=== PATIENT | female | born 1935 | race Two or more races ===

== ENCOUNTER 2018-08-25 15:47 | Inpatient (IN) | payer MEDICARE, MEDICAID ==
[~2018-08-25] VITALS: Ht 157.5 cm; Wt 93.9 kg
[2018-08-25] MEDS ORDERED: ENALAPRIL 2.5MG/2ML VIAL 2ML IV ONE (19:30)
[2018-08-25 20:31] LABS: BASOPHILS % 0.8 % (0.0-2.0); EOSINOPHILS % 3.1 % (0.0-5.0); HEMATOCRIT. 41.8 % (36.0-48.0); HEMOGLOBIN. 13.7 g/dL (12.0-16.0); LYMPHOCYTES % 26.6 % (20.0-50.0); MEAN CORPUSCULAR HEMOGLOBIN 29.6 pg (28.0-32.0); MEAN CORPUSCULAR VOLUME 90.3 fL (81.0-99.0); MEAN PLATELET VOLUME 8.8 fl (7.4-10.4); MONOCYTES % 6.4 % (2.0-8.0); NEUTROPHILS % 63.1 % (40.0-76.0); PLATELET 294 x1000/uL (130-400); RED BLOOD CELL COUNT 4.63 mill/uL (4.2-5.4)
[2018-08-25 20:39] LABS: PARTIAL THROMBOPLASTIN TIME 38.7 sec (23.4-31.0); PROTHROMBIN TIME 10.1 sec (9.1-11.1)
[2018-08-25 20:43] LABS: CHLORIDE 107 mEq/L (98-107)
[2018-08-26] MEDS ORDERED: ACETAMINOPHEN 325MG TABLET PO PRN (07:30)
[2018-08-26 08:27] LABS: BASOPHILS % 1.2 % (0.0-2.0); EOSINOPHILS % 3.2 % (0.0-5.0); HEMATOCRIT. 33.5 % (36.0-48.0); HEMOGLOBIN. 11.2 g/dL (12.0-16.0); LYMPHOCYTES % 27.6 % (20.0-50.0); MEAN CORPUSCULAR VOLUME 90.2 fL (81.0-99.0); MEAN PLATELET VOLUME 8.4 fl (7.4-10.4); MONOCYTES % 9.5 % (2.0-8.0); NEUTROPHILS % 58.5 % (40.0-76.0); PLATELET 249 x1000/uL (130-400); RED BLOOD CELL COUNT 3.71 mill/uL (4.2-5.4); RED CELL DISTRIBUTION WIDTH 13.9 % (11.6-14.6)
[2018-08-26 08:34] LABS: CHLORIDE 109 mEq/L (98-107)
[2018-08-26 08:41] LABS: LDL CHOLESTEROL 184 mg/dL (5-100)
[2018-08-26 08:42] LABS: HDL CHOLESTEROL 43 mg/dL (40-59)
[2018-08-26] MEDS ORDERED: ENOXAPARIN 40MG/0.4ML SYR SUBCUT SCH (09:00)
[2018-08-26 09:24] VITALS: BP 163/53
[2018-08-26] MEDS ORDERED: LOSARTAN POTASSIUM 25 MG TABLET PO SCH (10:00)
[2018-08-26] MEDS: FUROSEMIDE 20MG/2ML VIAL IVP SCH (10:27)
[2018-08-26] MEDS: LORATADINE 10MG TABLET PO SCH (10:28)
[2018-08-26] MEDS: AMLODIPINE 5MG TABLET PO SCH ×2 (10:28→21:44)
[2018-08-26] MEDS: OXYMETAZOLINE HCL NASAL SPRAY 15ML BOTHNSTRLS SCH ×2 (11:22→21:44)
[2018-08-26 12:00] VITALS: BP 154/31
[2018-08-26 15:53] LABS: CREATINE KINASE MB FRACTION < 1.0 ng/mL (0.5-3.6)
[2018-08-26 16:00] VITALS: BP 126/33
[2018-08-26 20:00] VITALS: BP 113/38
[2018-08-26] MEDS ORDERED: ENOXAPARIN 30MG/0.3ML SYR SUBCUT SCH (21:00)
[2018-08-27] VITALS: BP 109/40
[2018-08-27 00:22] LABS: CREATINE KINASE MB FRACTION < 1.0 ng/mL (0.5-3.6)
[2018-08-27 04:00] VITALS: BP 126/40
[2018-08-27 06:47] LABS: BASOPHILS % 0.9 % (0.0-2.0); EOSINOPHILS % 3.6 % (0.0-5.0); HEMOGLOBIN. 10.8 g/dL (12.0-16.0); LYMPHOCYTES % 33.4 % (20.0-50.0); MEAN CORPUSCULAR HEMOGLOBIN 30.2 pg (28.0-32.0); MEAN CORPUSCULAR VOLUME 89.5 fL (81.0-99.0); MEAN PLATELET VOLUME 8.9 fl (7.4-10.4); MONOCYTES % 8.2 % (2.0-8.0); NEUTROPHILS % 53.9 % (40.0-76.0); PLATELET 258 x1000/uL (130-400); RED BLOOD CELL COUNT 3.58 mill/uL (4.2-5.4)
[2018-08-27 06:52] LABS: CHLORIDE 107 mEq/L (98-107)
[2018-08-27 07:11] LABS: CREATINE KINASE MB FRACTION < 1.0 ng/mL (0.5-3.6)
[2018-08-27 08:00] VITALS: BP 138/39
[2018-08-27] MEDS: OXYMETAZOLINE HCL NASAL SPRAY 15ML BOTHNSTRLS SCH ×2 (08:58→21:06)
[2018-08-27] MEDS: AMLODIPINE 5MG TABLET PO SCH ×2 (08:59→21:05)
[2018-08-27] MEDS: LORATADINE 10MG TABLET PO SCH (08:59)
[2018-08-27] MEDS: LOSARTAN POTASSIUM 25 MG TABLET PO SCH (08:59)
[2018-08-27] MEDS: FUROSEMIDE 20MG/2ML VIAL IVP SCH (08:59)
[2018-08-27 12:00] VITALS: BP 106/41
[2018-08-27 16:00] VITALS: BP 116/41
[2018-08-27 20:00] VITALS: BP 122/53
[2018-08-28] VITALS: BP 136/42
[2018-08-28 04:00] VITALS: BP 126/75
[2018-08-28 07:02] LABS: BASOPHILS % 1.1 % (0.0-2.0); EOSINOPHILS % 4.1 % (0.0-5.0); HEMOGLOBIN. 11.7 g/dL (12.0-16.0); LYMPHOCYTES % 33.2 % (20.0-50.0); MEAN CORPUSCULAR HEMOGLOBIN 29.7 pg (28.0-32.0); MEAN CORPUSCULAR VOLUME 91.2 fL (81.0-99.0); MEAN PLATELET VOLUME 9.1 fl (7.4-10.4); MONOCYTES % 7.1 % (2.0-8.0); NEUTROPHILS % 54.5 % (40.0-76.0); PLATELET 267 x1000/uL (130-400); RED BLOOD CELL COUNT 3.95 mill/uL (4.2-5.4); RED CELL DISTRIBUTION WIDTH 13.9 % (11.6-14.6)
[2018-08-28 08:00] VITALS: BP 158/53
[2018-08-28] MEDS: LOSARTAN POTASSIUM 25 MG TABLET PO SCH (09:09)
[2018-08-28] MEDS: LORATADINE 10MG TABLET PO SCH (09:09)
[2018-08-28] MEDS: FUROSEMIDE 20MG/2ML VIAL IVP SCH (09:09)
[2018-08-28] MEDS: AMLODIPINE 5MG TABLET PO SCH (09:09)
[2018-08-28] MEDS: OXYMETAZOLINE HCL NASAL SPRAY 15ML BOTHNSTRLS SCH (09:15)
[2018-08-28 12:34] VITALS: BP 158/53
[2018-08-28] MEDS ORDERED: ATORVASTATIN CALCIUM 10MG TABLET PO SCH (21:00)
== END 2018-08-28 14:40 | disposition home health service (06) | DRG 151 ==
LOC: ER 15:47 → 5WST 22:54 → EDBEDREQ 08-26 00:40 → ENRESERV 08-26 07:25 → CANBEDREQ 08-26 22:53
PROVIDERS: ADMIT Internal Medicine Geriatric Medicine; ATTEND Internal Medicine Geriatric Medicine
DX: R04.0 Epistaxis (principal); E11.65 Type 2 diabetes mellitus with hyperglycemia; D64.9 Anemia, unspecified; M19.90 Unspecified osteoarthritis, unspecified site; E66.01 Morbid (severe) obesity due to excess calories; I87.2 Venous insufficiency (chronic) (peripheral); E78.5 Hyperlipidemia, unspecified; I11.0 Hypertensive heart disease with heart failure; I50.9 Heart failure, unspecified; J31.0 Chronic rhinitis; Z95.1 Presence of aortocoronary bypass graft; I25.2 Old myocardial infarction
CPT/HCPCS: 36415; 71045; 80048; 80061; 82553; 83036; 84443; 84484; 85576; 86850; 86900; 93005; 93306; 93970; 96374; 97162; 99285; J1940; J3490

== ENCOUNTER 2019-01-06 20:50 | Inpatient (IN) | payer MEDICARE, MEDICAID ==
[~2019-01-06] VITALS: Ht 157.5 cm; Wt 101.2 kg
[2019-01-06 20:50] VITALS: BP_SYST 117; BP_DIAS 43; BP_DIAS 63
[2019-01-06] MEDS ORDERED: ONDANSETRON 4MG ODT PO PRN (22:00)
[2019-01-06] MEDS ORDERED: DOCUSATE SODIUM 100MG CAPSULE PO PRN (22:00)
[2019-01-06] MEDS ORDERED: CLONIDINE 0.1MG TABLET PO PRN (22:00)
[2019-01-06] MEDS ORDERED: ACETAMINOPHEN 325MG TABLET PO PRN (22:00)
[2019-01-06] MEDS ORDERED: DEXTROSE 50% WATER 50ML SYRINGE IV PRN (22:15)
[2019-01-06] MEDS ORDERED: DILTIAZEM HCL 120MG CAPSULE CD 24HR PO PRN (22:30)
[2019-01-06] MEDS: SILDENAFIL CITRATE 20MG TABLET PO SCH (23:00)
[2019-01-07] MEDS: IPRATROPIUM BROMIDE (0.02%) 0.5MG/2.5ML NEB HHN SCH ×5 (00:48→16:49)
[2019-01-07] MEDS: SILDENAFIL CITRATE 20MG TABLET PO SCH ×3 (06:00→21:23)
[2019-01-07] MEDS: BLOOD SUGAR DIAGNOSTIC STRIP TEST SCH ×4 (06:07→21:39)
[2019-01-07] MEDS: INSULIN LISPRO 100 UNITS/ML SUBCUT SCH ×4 (06:08→21:00)
[2019-01-07] MEDS ORDERED: BLOOD SUGAR DIAGNOSTIC STRIP TEST SCH (06:30)
[2019-01-07 06:49] LABS: BASOPHILS % 0.9 % (0.0-2.0); EOSINOPHILS % 8.1 % (0.0-5.0); HEMATOCRIT. 29.5 % (36.0-48.0); HEMOGLOBIN. 9.7 g/dL (12.0-16.0); LYMPHOCYTES % 14.4 % (20.0-50.0); MEAN CORPUSCULAR HEMOGLOBIN 29.1 pg (28.0-32.0); MEAN CORPUSCULAR VOLUME 88.1 fL (81.0-99.0); MEAN PLATELET VOLUME 8.4 fl (7.4-10.4); MONOCYTES % 11.1 % (2.0-8.0); NEUTROPHILS % 65.5 % (40.0-76.0); PLATELET 331 x1000/uL (130-400); RED BLOOD CELL COUNT 3.35 mill/uL (4.2-5.4)
[2019-01-07] MEDS: BUDESONIDE 0.5MG/2ML NEB HHN SCH (07:28)
[2019-01-07 07:51] VITALS: BP 116/69
[2019-01-07 08:12] LABS: PHOSPHORUS 3.6 mg/dL (2.5-4.9)
[2019-01-07] MEDS: APIXABAN 5 MG TABLET PO SCH ×2 (08:15→16:20)
[2019-01-07] MEDS: LIDOCAINE 5% PATCH TOP SCH (08:16)
[2019-01-07] MEDS: METOPROLOL TARTRATE 25MG TABLET PO SCH ×2 (08:16→21:23)
[2019-01-07] MEDS ORDERED: POTASSIUM CHLORIDE 20MEQ TABLET SR PO SCH (09:00)
[2019-01-07] MEDS ORDERED: FUROSEMIDE 40MG TABLET PO SCH (09:00)
[2019-01-07] MEDS: MONTELUKAST SODIUM 10MG TABLET PO SCH (16:20)
[2019-01-07] MEDS: MULTAQ 400 MG PO SCH (16:20)
[2019-01-07 20:00] VITALS: BP 142/43
[2019-01-07] MEDS: IPRATROPIUM/ALBUTEROL 0.5-3(2.5)MG/3ML NEB HHN PRN (20:40)
[2019-01-07] MEDS: ATORVASTATIN CALCIUM 20MG TABLET PO SCH (21:22)
[2019-01-08] MEDS: IPRATROPIUM BROMIDE (0.02%) 0.5MG/2.5ML NEB HHN SCH ×6 (01:00→20:21)
[2019-01-08] MEDS: SILDENAFIL CITRATE 20MG TABLET PO SCH ×3 (05:34→22:29)
[2019-01-08] MEDS: INSULIN LISPRO 100 UNITS/ML SUBCUT SCH ×4 (06:07→21:00)
[2019-01-08] MEDS: BLOOD SUGAR DIAGNOSTIC STRIP TEST SCH ×4 (06:07→21:00)
[2019-01-08 06:41] LABS: BASOPHILS % 1.2 % (0.0-2.0); EOSINOPHILS % 9.6 % (0.0-5.0); HEMATOCRIT. 29.9 % (36.0-48.0); HEMOGLOBIN. 9.6 g/dL (12.0-16.0); LYMPHOCYTES % 20.2 % (20.0-50.0); MEAN CORPUSCULAR HEMOGLOBIN 28.6 pg (28.0-32.0); MEAN CORPUSCULAR VOLUME 88.8 fL (81.0-99.0); MEAN PLATELET VOLUME 8.2 fl (7.4-10.4); MONOCYTES % 13.2 % (2.0-8.0); NEUTROPHILS % 55.8 % (40.0-76.0); PLATELET 310 x1000/uL (130-400); RED BLOOD CELL COUNT 3.37 mill/uL (4.2-5.4); RED CELL DISTRIBUTION WIDTH 14.4 % (11.6-14.6)
[2019-01-08 08:51] VITALS: BP 118/71
[2019-01-08] MEDS: BUDESONIDE 0.5MG/2ML NEB HHN SCH (09:00)
[2019-01-08] MEDS: LIDOCAINE 5% PATCH TOP SCH (09:00)
[2019-01-08] MEDS: APIXABAN 5 MG TABLET PO SCH ×2 (09:34→16:53)
[2019-01-08] MEDS: METOPROLOL TARTRATE 25MG TABLET PO SCH ×2 (09:34→21:00)
[2019-01-08] MEDS: MULTAQ 400 MG PO SCH ×2 (09:35→16:53)
[2019-01-08] MEDS: MONTELUKAST SODIUM 10MG TABLET PO SCH (16:53)
[2019-01-08] MEDS: SODIUM CHLORIDE 0.45% 1,000 ML IV SCH (16:56)
[2019-01-08 20:00] VITALS: BP 150/35
[2019-01-08] MEDS: ATORVASTATIN CALCIUM 20MG TABLET PO SCH (22:29)
[2019-01-09] MEDS: IPRATROPIUM BROMIDE (0.02%) 0.5MG/2.5ML NEB HHN SCH ×6 (00:43→21:14)
[2019-01-09 06:34] LABS: EOSINOPHILS % 8.5 % (0.0-5.0); HEMOGLOBIN. 10.1 g/dL (12.0-16.0); LYMPHOCYTES % 18.4 % (20.0-50.0); MEAN CORPUSCULAR HEMOGLOBIN 28.9 pg (28.0-32.0); MEAN PLATELET VOLUME 8.3 fl (7.4-10.4); MONOCYTES % 13.5 % (2.0-8.0); NEUTROPHILS % 58.6 % (40.0-76.0); PLATELET 327 x1000/uL (130-400); RED BLOOD CELL COUNT 3.48 mill/uL (4.2-5.4); RED CELL DISTRIBUTION WIDTH 14.3 % (11.6-14.6)
[2019-01-09] MEDS: SILDENAFIL CITRATE 20MG TABLET PO SCH ×3 (06:57→21:03)
[2019-01-09] MEDS: INSULIN LISPRO 100 UNITS/ML SUBCUT SCH ×4 (06:58→21:00)
[2019-01-09] MEDS: BLOOD SUGAR DIAGNOSTIC STRIP TEST SCH ×4 (06:58→21:03)
[2019-01-09 07:39] LABS: BG BASE EXCESS 1.7 mmol/L (-2.0-2.0); BG CARBOXYHEMOGLOBIN 0.8 % (0.5-1.5); BG DEOXYHEMOGLOBIN 9.6 % (0.0-5.0); BG FRACTION INSPIRED OXYGEN 21; BG HCO3 ACT 26.5 mmol/L (22.0-26.0); BG METHEMOGLOBIN 0.1 % (0.0-1.5); BG OXYGEN SATURATION 90.3 % (92.0-98.5); BG OXYHEMOGLOBIN 89.5 % (94.0-97.0); BG PCO2 42.2 mmHg (35.0-45.0); BG PH 7.415 (7.350-7.450); BG PO2 58.9 mmHg (75.0-100.0); BG SAMPLE SITE LEFT BRACHIAL; BG TOTAL HEMOGLOBIN 10.7 g/dL (12.0-18.0); BG VENT MODE ROOM AIR
[2019-01-09 08:09] VITALS: BP 144/33
[2019-01-09] MEDS: APIXABAN 5 MG TABLET PO SCH ×2 (08:18→16:39)
[2019-01-09] MEDS: MULTAQ 400 MG PO SCH ×2 (08:18→16:39)
[2019-01-09] MEDS: METOPROLOL TARTRATE 25MG TABLET PO SCH ×2 (08:19→21:03)
[2019-01-09] MEDS: LIDOCAINE 5% PATCH TOP SCH (08:20)
[2019-01-09] MEDS: IPRATROPIUM/ALBUTEROL 0.5-3(2.5)MG/3ML NEB HHN PRN (08:26)
[2019-01-09 10:01] LABS: CREATINE KINASE 38 IU/L (26-192)
[2019-01-09 13:30] VITALS: BP 131/78
[2019-01-09] MEDS: MONTELUKAST SODIUM 10MG TABLET PO SCH (16:39)
[2019-01-09 20:00] VITALS: BP 151/43
[2019-01-09] MEDS: ATORVASTATIN CALCIUM 20MG TABLET PO SCH (21:03)
[2019-01-09] MEDS: SODIUM CHLORIDE 0.45% 1,000 ML IV SCH (21:04)
[2019-01-09] MEDS ORDERED: METO100T16 MT (21:50)
[2019-01-09] MEDS ORDERED: POTA10CA42 MT (21:57)
[2019-01-09] MEDS ORDERED: LOSA25TA12 MT (21:57)
[2019-01-09] MEDS ORDERED: AMLO5TAB4 MT (21:57)
[2019-01-09] MEDS ORDERED: MELO-106 MT (21:57)
[2019-01-09] MEDS ORDERED: ATOR-2 MT (21:57)
[2019-01-09] MEDS ORDERED: METO5TAB69 MT (21:57)
[2019-01-09] MEDS ORDERED: COR12 MT (21:57)
[2019-01-09] MEDS ORDERED: GABA-531 MT (22:07)
[2019-01-10] MEDS: IPRATROPIUM BROMIDE (0.02%) 0.5MG/2.5ML NEB HHN SCH ×4 (04:30→21:07)
[2019-01-10] MEDS: SILDENAFIL CITRATE 20MG TABLET PO SCH ×3 (05:54→21:41)
[2019-01-10] MEDS: BLOOD SUGAR DIAGNOSTIC STRIP TEST SCH ×4 (05:54→21:41)
[2019-01-10] MEDS: INSULIN LISPRO 100 UNITS/ML SUBCUT SCH ×4 (06:03→21:00)
[2019-01-10 08:00] VITALS: BP 126/34
[2019-01-10] MEDS: METOPROLOL TARTRATE 25MG TABLET PO SCH ×2 (09:00→21:41)
[2019-01-10] MEDS: LIDOCAINE 5% PATCH TOP SCH (09:00)
[2019-01-10] MEDS: APIXABAN 5 MG TABLET PO SCH ×2 (09:24→16:44)
[2019-01-10] MEDS: MULTAQ 400 MG PO SCH ×2 (09:26→16:44)
[2019-01-10] MEDS: SODIUM CHLORIDE 0.45% 1,000 ML IV SCH (12:00)
[2019-01-10 12:36] LABS: BASOPHILS % 1.1 % (0.0-2.0); EOSINOPHILS % 5.9 % (0.0-5.0); HEMATOCRIT. 33.1 % (36.0-48.0); HEMOGLOBIN. 10.5 g/dL (12.0-16.0); LYMPHOCYTES % 15.3 % (20.0-50.0); MEAN CORPUSCULAR HEMOGLOBIN 28.2 pg (28.0-32.0); MEAN CORPUSCULAR VOLUME 88.5 fL (81.0-99.0); MEAN PLATELET VOLUME 8.2 fl (7.4-10.4); MONOCYTES % 9.3 % (2.0-8.0); NEUTROPHILS % 68.4 % (40.0-76.0); PLATELET 352 x1000/uL (130-400); RED BLOOD CELL COUNT 3.74 mill/uL (4.2-5.4); RED CELL DISTRIBUTION WIDTH 14.6 % (11.6-14.6)
[2019-01-10] MEDS: MONTELUKAST SODIUM 10MG TABLET PO SCH (16:44)
[2019-01-10 20:00] VITALS: BP 136/36
[2019-01-10] MEDS: BUDESONIDE 0.5MG/2ML NEB HHN SCH (21:00)
[2019-01-10] MEDS: ATORVASTATIN CALCIUM 20MG TABLET PO SCH (21:41)
[2019-01-11] MEDS ORDERED: BUDESONIDE 0.5MG/2ML NEB ONE (01:06)
[2019-01-11] MEDS: IPRATROPIUM BROMIDE (0.02%) 0.5MG/2.5ML NEB HHN SCH ×6 (01:08→20:10)
[2019-01-11] MEDS: BUDESONIDE 0.5MG/2ML NEB HHN SCH (01:08)
[2019-01-11] MEDS: BLOOD SUGAR DIAGNOSTIC STRIP TEST SCH ×4 (06:38→20:31)
[2019-01-11] MEDS: SILDENAFIL CITRATE 20MG TABLET PO SCH ×3 (06:38→21:27)
[2019-01-11] MEDS: INSULIN LISPRO 100 UNITS/ML SUBCUT SCH ×4 (06:42→20:31)
[2019-01-11 06:52] LABS: BASOPHILS % 1.4 % (0.0-2.0); EOSINOPHILS % 8.5 % (0.0-5.0); HEMATOCRIT. 29.2 % (36.0-48.0); HEMOGLOBIN. 9.7 g/dL (12.0-16.0); LYMPHOCYTES % 23.3 % (20.0-50.0); MEAN CORPUSCULAR HEMOGLOBIN 29.1 pg (28.0-32.0); MEAN CORPUSCULAR VOLUME 88.1 fL (81.0-99.0); MEAN PLATELET VOLUME 8.5 fl (7.4-10.4); MONOCYTES % 10.6 % (2.0-8.0); NEUTROPHILS % 56.2 % (40.0-76.0); PLATELET 314 x1000/uL (130-400); RED BLOOD CELL COUNT 3.31 mill/uL (4.2-5.4); RED CELL DISTRIBUTION WIDTH 14.2 % (11.6-14.6)
[2019-01-11 08:15] VITALS: BP 139/44
[2019-01-11] MEDS: LIDOCAINE 5% PATCH TOP SCH (09:00)
[2019-01-11] MEDS: MULTAQ 400 MG PO SCH ×2 (09:04→17:47)
[2019-01-11] MEDS: METOPROLOL TARTRATE 25MG TABLET PO SCH ×2 (09:04→20:26)
[2019-01-11] MEDS: APIXABAN 5 MG TABLET PO SCH ×2 (09:04→17:47)
[2019-01-11] MEDS: SODIUM CHLORIDE 0.45% 1,000 ML IV SCH (14:27)
[2019-01-11] MEDS: MONTELUKAST SODIUM 10MG TABLET PO SCH (17:46)
[2019-01-11 20:00] VITALS: BP 147/38
[2019-01-11] MEDS: ATORVASTATIN CALCIUM 20MG TABLET PO SCH (20:26)
[2019-01-12] MEDS: IPRATROPIUM BROMIDE (0.02%) 0.5MG/2.5ML NEB HHN SCH ×6 (00:07→19:44)
[2019-01-12] MEDS: SILDENAFIL CITRATE 20MG TABLET PO SCH ×3 (05:45→21:17)
[2019-01-12] MEDS: INSULIN LISPRO 100 UNITS/ML SUBCUT SCH ×4 (06:25→21:00)
[2019-01-12] MEDS: BLOOD SUGAR DIAGNOSTIC STRIP TEST SCH ×4 (06:25→21:19)
[2019-01-12 07:50] VITALS: BP 139/43
[2019-01-12 08:00] VITALS: BP 139/43
[2019-01-12] MEDS: LIDOCAINE 5% PATCH TOP SCH (09:00)
[2019-01-12] MEDS: MULTAQ 400 MG PO SCH ×2 (09:13→16:38)
[2019-01-12] MEDS: APIXABAN 5 MG TABLET PO SCH ×2 (09:13→16:37)
[2019-01-12] MEDS: METOPROLOL TARTRATE 25MG TABLET PO SCH ×2 (09:13→21:00)
[2019-01-12] MEDS: MONTELUKAST SODIUM 10MG TABLET PO SCH (16:37)
[2019-01-12 20:00] VITALS: BP 137/34
[2019-01-12] MEDS: ATORVASTATIN CALCIUM 20MG TABLET PO SCH (21:16)
[2019-01-13] MEDS: IPRATROPIUM BROMIDE (0.02%) 0.5MG/2.5ML NEB HHN SCH ×6 (01:20→21:26)
[2019-01-13] MEDS: SILDENAFIL CITRATE 20MG TABLET PO SCH ×3 (06:12→21:59)
[2019-01-13] MEDS: BLOOD SUGAR DIAGNOSTIC STRIP TEST SCH ×4 (06:12→21:00)
[2019-01-13 07:26] LABS: BASOPHILS % 1.7 % (0.0-2.0); EOSINOPHILS % 6.5 % (0.0-5.0); HEMATOCRIT. 29.5 % (36.0-48.0); HEMOGLOBIN. 9.7 g/dL (12.0-16.0); LYMPHOCYTES % 24.6 % (20.0-50.0); MEAN CORPUSCULAR VOLUME 88.6 fL (81.0-99.0); NEUTROPHILS % 57.2 % (40.0-76.0); PLATELET 301 x1000/uL (130-400); RED BLOOD CELL COUNT 3.33 mill/uL (4.2-5.4); RED CELL DISTRIBUTION WIDTH 14.5 % (11.6-14.6)
[2019-01-13 08:36] VITALS: BP 141/47
[2019-01-13] MEDS: APIXABAN 5 MG TABLET PO SCH ×2 (08:42→17:34)
[2019-01-13] MEDS: METOPROLOL TARTRATE 25MG TABLET PO SCH ×2 (08:43→22:00)
[2019-01-13] MEDS: LIDOCAINE 5% PATCH TOP SCH (08:54)
[2019-01-13] MEDS: INSULIN LISPRO 100 UNITS/ML SUBCUT SCH ×4 (08:54→21:00)
[2019-01-13] MEDS: MULTAQ 400 MG PO SCH ×2 (08:58→17:34)
[2019-01-13] MEDS: MONTELUKAST SODIUM 10MG TABLET PO SCH (17:33)
[2019-01-13 20:00] VITALS: BP 142/46
[2019-01-13] MEDS: ATORVASTATIN CALCIUM 20MG TABLET PO SCH (21:59)
[2019-01-14] MEDS: IPRATROPIUM BROMIDE (0.02%) 0.5MG/2.5ML NEB HHN SCH ×5 (00:44→15:20)
[2019-01-14] MEDS: SILDENAFIL CITRATE 20MG TABLET PO SCH ×2 (05:25→13:03)
[2019-01-14 06:28] LABS: BASOPHILS % 1.9 % (0.0-2.0); EOSINOPHILS % 6.2 % (0.0-5.0); HEMATOCRIT. 29.6 % (36.0-48.0); HEMOGLOBIN. 9.7 g/dL (12.0-16.0); LYMPHOCYTES % 22.4 % (20.0-50.0); MEAN CORPUSCULAR HEMOGLOBIN 28.9 pg (28.0-32.0); MEAN CORPUSCULAR VOLUME 87.8 fL (81.0-99.0); MEAN PLATELET VOLUME 8.9 fl (7.4-10.4); MONOCYTES % 9.6 % (2.0-8.0); NEUTROPHILS % 59.9 % (40.0-76.0); PLATELET 289 x1000/uL (130-400); RED BLOOD CELL COUNT 3.37 mill/uL (4.2-5.4); RED CELL DISTRIBUTION WIDTH 14.4 % (11.6-14.6)
[2019-01-14] MEDS: BLOOD SUGAR DIAGNOSTIC STRIP TEST SCH ×3 (06:30→17:22)
[2019-01-14 08:00] VITALS: BP 128/41
[2019-01-14] MEDS: APIXABAN 5 MG TABLET PO SCH ×2 (08:43→16:41)
[2019-01-14] MEDS: MULTAQ 400 MG PO SCH ×2 (08:44→16:41)
[2019-01-14] MEDS: INSULIN LISPRO 100 UNITS/ML SUBCUT SCH ×3 (08:46→17:00)
[2019-01-14] MEDS: LIDOCAINE 5% PATCH TOP SCH (08:46)
[2019-01-14] MEDS ORDERED: METOPROLOL TARTRATE 25MG TABLET PO SCH (11:00)
[2019-01-14 12:34] VITALS: BP 148/45
[2019-01-14] MEDS ORDERED: BISACODYL 5MG TABLET PO PRN (13:30)
[2019-01-14] MEDS: MONTELUKAST SODIUM 10MG TABLET PO SCH (16:41)
== END 2019-01-14 18:26 | disposition home health service (06) | DRG 291 ==
PROVIDERS: ADMIT Psychiatry & Neurology Neurology; ATTEND Internal Medicine Geriatric Medicine
DX: I13.0 Hypertensive heart and chronic kidney disease with heart failure and stage 1 through stage 4 chronic kidney disease, or unspecified chronic kidney disease (principal); J96.00 Acute respiratory failure, unspecified whether with hypoxia or hypercapnia; I50.43 Acute on chronic combined systolic (congestive) and diastolic (congestive) heart failure; N17.9 Acute kidney failure, unspecified; J44.1 Chronic obstructive pulmonary disease with (acute) exacerbation; J91.8 Pleural effusion in other conditions classified elsewhere; E44.1 Mild protein-calorie malnutrition; N39.0 Urinary tract infection, site not specified; Z68.41 Body mass index [BMI] 40.0-44.9, adult; I48.91 Unspecified atrial fibrillation; R53.81 Other malaise; E11.22 Type 2 diabetes mellitus with diabetic chronic kidney disease; I87.2 Venous insufficiency (chronic) (peripheral); E66.01 Morbid (severe) obesity due to excess calories; K80.20 Calculus of gallbladder without cholecystitis without obstruction; K74.60 Unspecified cirrhosis of liver; D64.9 Anemia, unspecified; I25.10 Atherosclerotic heart disease of native coronary artery without angina pectoris; E11.51 Type 2 diabetes mellitus with diabetic peripheral angiopathy without gangrene; I27.22 Pulmonary hypertension due to left heart disease; M19.90 Unspecified osteoarthritis, unspecified site; E87.5 Hyperkalemia; D63.8 Anemia in other chronic diseases classified elsewhere; D72.829 Elevated white blood cell count, unspecified; E78.5 Hyperlipidemia, unspecified; I48.0 Paroxysmal atrial fibrillation; M19.011 Primary osteoarthritis, right shoulder; M19.012 Primary osteoarthritis, left shoulder; N18.9 Chronic kidney disease, unspecified; R32 Unspecified urinary incontinence; I25.2 Old myocardial infarction; Z79.01 Long term (current) use of anticoagulants; Z95.1 Presence of aortocoronary bypass graft; Z95.5 Presence of coronary angioplasty implant and graft
CPT/HCPCS: 36415; 36600; 80048; 82375; 82550; 82805; 82962; 83540; 83550; 83735; 84100; 84443; 93005; 94640; 97110; 97116; 97162; 97167; 97530; 97535; A6261; C1893; J7620; J7626

== ENCOUNTER 2019-01-29 06:10 | Inpatient (IN) | payer MEDICARE, MEDICAID ==
[~2019-01-29] VITALS: Ht 165.1 cm; Wt 98.0 kg
[~2019-01-29 06:10] MED LIST: ATOR-2 MT
[2019-01-29] MEDS ORDERED: APIXABAN 5 MG TABLET PO STA (06:39)
[2019-01-29] MEDS ORDERED: FUROSEMIDE 20MG/2ML VIAL IVP ONE (06:45)
[2019-01-29] MEDS ORDERED: ASPIRIN 81MG TABLET PO ONE (06:45)
[2019-01-29] MEDS ORDERED: NITROGLYCERIN OINT 1GM/INCH UDPKT TD ONE (06:45)
[2019-01-29] MEDS ORDERED: METOPROLOL TARTRATE 25MG TABLET PO ONE (06:45)
[2019-01-29] MEDS ORDERED: MORPHINE SULFATE 2 MG/ML CPJ (NOT FOR IM USE) IV ONE (06:45)
[2019-01-29] MEDS ORDERED: ONDANSETRON HCL 4MG/2ML INJ IV ONE (06:45)
[2019-01-29 06:46] LABS: BASOPHILS % 1.1 % (0.0-2.0); EOSINOPHILS % 3.2 % (0.0-5.0); HEMATOCRIT. 25.8 % (36.0-48.0); HEMOGLOBIN. 8.4 g/dL (12.0-16.0); LYMPHOCYTES % 21.4 % (20.0-50.0); MEAN CORPUSCULAR HEMOGLOBIN 29.1 pg (28.0-32.0); MEAN CORPUSCULAR VOLUME 89.1 fL (81.0-99.0); MEAN PLATELET VOLUME 9.1 fl (7.4-10.4); MONOCYTES % 8.8 % (2.0-8.0); NEUTROPHILS % 65.5 % (40.0-76.0); PLATELET 264 x1000/uL (130-400); RED CELL DISTRIBUTION WIDTH 15.5 % (11.6-14.6)
[2019-01-29 06:47] LABS: CHLORIDE 111 mEq/L (98-107)
[2019-01-29 06:50] LABS: INR 1.1; PARTIAL THROMBOPLASTIN TIME 45.7 sec (23.4-31.0); PROTHROMBIN TIME 11.4 sec (9.6-11.0)
[2019-01-29] MEDS ORDERED: CLONIDINE 0.1MG TABLET PO PRN (08:30)
[2019-01-29] MEDS ORDERED: OMEPRAZOLE 20MG CAPSULE EXTENDED RELEASE PO SCH (08:30)
[2019-01-29] MEDS: DOCUSATE SODIUM 250MG CAPSULE PO SCH (10:00)
[2019-01-29] MEDS: FUROSEMIDE 40MG TABLET PO SCH ×2 (10:24→18:37)
[2019-01-29] MEDS: POTASSIUM CHLORIDE 20MEQ TABLET SR PO SCH (10:29)
[2019-01-29] MEDS: TRAMADOL HCL/ACETAMINOPHEN 37.5/325MG TABLET PO PRN (10:32)
[2019-01-29 16:00] VITALS: BP_SYST 145; BP_SYST 151; BP_DIAS 42; BP_DIAS 66
[2019-01-29 16:30] VITALS: BP 128/66
[2019-01-29] MEDS: MONTELUKAST SODIUM 10MG TABLET PO SCH (18:37)
[2019-01-29] MEDS: METOPROLOL TARTRATE 25MG TABLET PO SCH (18:38)
[2019-01-29 19:54] VITALS: BP 96/34
[2019-01-29] MEDS: ACETAMINOPHEN 325MG TABLET PO PRN (20:52)
[2019-01-29] MEDS: ATORVASTATIN CALCIUM 40MG TABLET PO SCH (20:52)
[2019-01-29] MEDS: OMEPRAZOLE 20MG CAPSULE EXTENDED RELEASE PO SCH (20:52)
[2019-01-29] MEDS ORDERED: ATORVASTATIN CALCIUM 20MG TABLET PEG SCH (21:00)
[2019-01-30] VITALS (11 sets, daily range): BP systolic 93–129; BP diastolic 30–59
[2019-01-30] MEDS: MULTAQ 400 MG PO SCH ×3 (00:20→22:16)
[2019-01-30] MEDS: TRAMADOL HCL/ACETAMINOPHEN 37.5/325MG TABLET PO PRN ×2 (02:04→14:13)
[2019-01-30] MEDS ORDERED: DEXTROSE 50% WATER 50ML SYRINGE IV PRN (05:15)
[2019-01-30 05:34] LABS: CHLORIDE 110 mEq/L (98-107)
[2019-01-30 05:35] LABS: BASOPHILS % 1.1 % (0.0-2.0); HEMOGLOBIN. 7.5 g/dL (12.0-16.0); LYMPHOCYTES % 16.8 % (20.0-50.0); MEAN CORPUSCULAR HEMOGLOBIN 29.5 pg (28.0-32.0); MEAN CORPUSCULAR VOLUME 90.6 fL (81.0-99.0); NEUTROPHILS % 71.1 % (40.0-76.0); PLATELET 245 x1000/uL (130-400); RED BLOOD CELL COUNT 2.54 mill/uL (4.2-5.4)
[2019-01-30] MEDS: OMEPRAZOLE 20MG CAPSULE EXTENDED RELEASE PO SCH ×2 (06:28→22:16)
[2019-01-30] MEDS: FUROSEMIDE 40MG TABLET PO SCH ×2 (06:28→09:00)
[2019-01-30] MEDS: BLOOD SUGAR DIAGNOSTIC STRIP TEST SCH ×4 (06:29→21:00)
[2019-01-30] MEDS: METOPROLOL TARTRATE 25MG TABLET PO SCH ×2 (06:29→18:40)
[2019-01-30] MEDS: INSULIN LISPRO 100 UNITS/ML SUBCUT SCH ×4 (06:30→21:00)
[2019-01-30] MEDS: POTASSIUM CHLORIDE 20MEQ TABLET SR PO SCH (09:15)
[2019-01-30] MEDS: DOCUSATE SODIUM 250MG CAPSULE PO SCH (09:15)
[2019-01-30] MEDS: MULTIVITAMINS,THER W-MINERALS TABLET PO SCH (09:15)
[2019-01-30] MEDS: FERROUS SULFATE 325MG TABLET PO SCH ×2 (13:00→18:39)
[2019-01-30] MEDS ORDERED: BISACODYL 10MG SUPP PR NR (16:40)
[2019-01-30] MEDS ORDERED: METOCLOPRAMIDE HCL 10MG/2ML VIAL IV NR (16:40)
[2019-01-30] MEDS: MONTELUKAST SODIUM 10MG TABLET PO SCH (16:54)
[2019-01-30] MEDS: ACETAMINOPHEN 325MG TABLET PO PRN (17:27)
[2019-01-30] MEDS ORDERED: SORBITOL 70% SOLN 30ML PO NR ×2 (17:40→20:00)
[2019-01-30] MEDS: ATORVASTATIN CALCIUM 40MG TABLET PO SCH (22:16)
[2019-01-31] VITALS: BP 158/52
[2019-01-31 04:00] VITALS: BP 128/38
[2019-01-31] MEDS ORDERED: BISACODYL 10MG SUPP PR NR (04:00)
[2019-01-31] MEDS ORDERED: SORBITOL 70% SOLN 30ML PO NR (05:00)
[2019-01-31] MEDS: METOPROLOL TARTRATE 25MG TABLET PO SCH ×2 (06:00→18:00)
[2019-01-31 06:16] LABS: EOSINOPHILS % 2.9 % (0.0-5.0); HEMATOCRIT. 26.1 % (36.0-48.0); HEMOGLOBIN. 8.6 g/dL (12.0-16.0); MEAN CORPUSCULAR HEMOGLOBIN 29.1 pg (28.0-32.0); MEAN CORPUSCULAR VOLUME 88.8 fL (81.0-99.0); MEAN PLATELET VOLUME 8.7 fl (7.4-10.4); MONOCYTES % 10.5 % (2.0-8.0); NEUTROPHILS % 60.6 % (40.0-76.0); PLATELET 232 x1000/uL (130-400); RED BLOOD CELL COUNT 2.94 mill/uL (4.2-5.4); RED CELL DISTRIBUTION WIDTH 16.2 % (11.6-14.6)
[2019-01-31] MEDS: ONDANSETRON HCL 4MG/2ML INJ IV PRN ×2 (06:38→09:34)
[2019-01-31] MEDS: OMEPRAZOLE 20MG CAPSULE EXTENDED RELEASE PO SCH ×2 (06:42→21:15)
[2019-01-31] MEDS: BLOOD SUGAR DIAGNOSTIC STRIP TEST SCH ×4 (06:42→21:15)
[2019-01-31] MEDS: INSULIN LISPRO 100 UNITS/ML SUBCUT SCH ×4 (07:44→21:00)
[2019-01-31 08:16] VITALS: BP 121/47
[2019-01-31] MEDS: DOCUSATE SODIUM 250MG CAPSULE PO SCH (08:27)
[2019-01-31] MEDS: POTASSIUM CHLORIDE 20MEQ TABLET SR PO SCH (08:28)
[2019-01-31] MEDS: FUROSEMIDE 40MG TABLET PO SCH (08:28)
[2019-01-31] MEDS: FERROUS SULFATE 325MG TABLET PO SCH ×3 (08:28→18:03)
[2019-01-31] MEDS: MULTIVITAMINS,THER W-MINERALS TABLET PO SCH (08:28)
[2019-01-31] MEDS: MULTAQ 400 MG PO SCH ×2 (08:29→21:15)
[2019-01-31] MEDS ORDERED: HYDROMORPHONE HCL/PF 2MG/ML CPJ IV NR (10:00)
[2019-01-31] MEDS: DEXT 5%/0.45% NACL KCL 20MEQ/L 1,000 ML IV SCH (11:20)
[2019-01-31 12:00] VITALS: BP 119/40
[2019-01-31] MEDS ORDERED: MIDAZOLAM HCL 5 MG/5 ML VIAL ONE (13:18)
[2019-01-31] MEDS ORDERED: PROPOFOL 200MG/20ML VIAL IV ONE (13:18)
[2019-01-31] MEDS ORDERED: SIMETHICONE 40 MG/0.6 ML 30ML ONE (13:24)
[2019-01-31] MEDS ORDERED: LIDOCAINE HCL 1% 20ML VIAL (Pyxis) INJ ONE (13:48)
[2019-01-31] MEDS ORDERED: SODIUM CHLORIDE 0.9% 1,000 ML IV ONE (13:49)
[2019-01-31] MEDS ORDERED: ONDANSETRON HCL 4MG/2ML INJ IV PRN (14:00)
[2019-01-31 15:40] VITALS: BP 167/60
[2019-01-31] MEDS: MONTELUKAST SODIUM 10MG TABLET PO SCH (18:02)
[2019-01-31] MEDS: GABAPENTIN 100MG CAPSULE PO SCH (18:03)
[2019-01-31 20:00] VITALS: BP 127/37
[2019-01-31] MEDS: ATORVASTATIN CALCIUM 40MG TABLET PO SCH (21:15)
[2019-02-01] VITALS (12 sets, daily range): BP systolic 97–147; BP diastolic 24–48
[2019-02-01] MEDS: METOPROLOL TARTRATE 25MG TABLET PO SCH ×2 (06:00→18:00)
[2019-02-01] MEDS: BLOOD SUGAR DIAGNOSTIC STRIP TEST SCH ×4 (06:07→21:00)
[2019-02-01] MEDS: OMEPRAZOLE 20MG CAPSULE EXTENDED RELEASE PO SCH (06:07)
[2019-02-01] MEDS: GABAPENTIN 100MG CAPSULE PO SCH ×2 (06:07→18:10)
[2019-02-01] MEDS: ACETAMINOPHEN 325MG TABLET PO PRN (06:46)
[2019-02-01 06:47] LABS: BASOPHILS % 0.7 % (0.0-2.0); EOSINOPHILS % 2.4 % (0.0-5.0); LYMPHOCYTES % 19.8 % (20.0-50.0); MEAN CORPUSCULAR HEMOGLOBIN 29.3 pg (28.0-32.0); MEAN CORPUSCULAR VOLUME 90.5 fL (81.0-99.0); MEAN PLATELET VOLUME 8.9 fl (7.4-10.4); MONOCYTES % 9.9 % (2.0-8.0); NEUTROPHILS % 67.2 % (40.0-76.0); PLATELET 199 x1000/uL (130-400); RED BLOOD CELL COUNT 2.32 mill/uL (4.2-5.4); RED CELL DISTRIBUTION WIDTH 16.6 % (11.6-14.6)
[2019-02-01 07:42] LABS: HEMOGLOBIN. 6.8 g/dL (12.0-16.0)
[2019-02-01] MEDS: INSULIN LISPRO 100 UNITS/ML SUBCUT SCH ×4 (07:50→21:00)
[2019-02-01] MEDS: DOCUSATE SODIUM 250MG CAPSULE PO SCH (09:08)
[2019-02-01] MEDS: FUROSEMIDE 40MG TABLET PO SCH (09:08)
[2019-02-01] MEDS: POTASSIUM CHLORIDE 20MEQ TABLET SR PO SCH (09:08)
[2019-02-01] MEDS: MULTIVITAMINS,THER W-MINERALS TABLET PO SCH (09:08)
[2019-02-01] MEDS: FERROUS SULFATE 325MG TABLET PO SCH ×3 (09:08→17:43)
[2019-02-01] MEDS: MULTAQ 400 MG PO SCH (09:09)
[2019-02-01] MEDS: MONTELUKAST SODIUM 10MG TABLET PO SCH (17:43)
[2019-02-01] MEDS: DEXT 5%/0.45% NACL KCL 20MEQ/L 1,000 ML IV SCH (17:43)
[2019-02-01 18:54] LABS: HEMATOCRIT 25.5 % (36.0-48.0); HEMOGLOBIN 8.2 g/dL (12.0-16.0)
[2019-02-01] MEDS: TRAMADOL HCL/ACETAMINOPHEN 37.5/325MG TABLET PO PRN (19:01)
[2019-02-02] VITALS: BP 127/35
[2019-02-02] MEDS: OMEPRAZOLE 20MG CAPSULE EXTENDED RELEASE PO SCH ×3 (01:10→20:45)
[2019-02-02] MEDS: ATORVASTATIN CALCIUM 40MG TABLET PO SCH ×2 (01:10→20:45)
[2019-02-02] MEDS: MULTAQ 400 MG PO SCH ×3 (01:11→20:45)
[2019-02-02 04:00] VITALS: BP 112/22
[2019-02-02] MEDS: METOPROLOL TARTRATE 25MG TABLET PO SCH ×2 (05:35→17:38)
[2019-02-02] MEDS: GABAPENTIN 100MG CAPSULE PO SCH ×2 (05:35→17:31)
[2019-02-02 06:36] LABS: BASOPHILS % 0.7 % (0.0-2.0); EOSINOPHILS % 2.8 % (0.0-5.0); HEMOGLOBIN. 7.9 g/dL (12.0-16.0); LYMPHOCYTES % 21.6 % (20.0-50.0); MEAN CORPUSCULAR HEMOGLOBIN 29.9 pg (28.0-32.0); MEAN CORPUSCULAR VOLUME 91.1 fL (81.0-99.0); MEAN PLATELET VOLUME 8.6 fl (7.4-10.4); MONOCYTES % 9.7 % (2.0-8.0); NEUTROPHILS % 65.2 % (40.0-76.0); PLATELET 211 x1000/uL (130-400); RED BLOOD CELL COUNT 2.63 mill/uL (4.2-5.4); RED CELL DISTRIBUTION WIDTH 16.1 % (11.6-14.6)
[2019-02-02] MEDS: BLOOD SUGAR DIAGNOSTIC STRIP TEST SCH ×4 (06:42→20:45)
[2019-02-02] MEDS: INSULIN LISPRO 100 UNITS/ML SUBCUT SCH ×4 (07:50→20:45)
[2019-02-02 08:00] VITALS: BP 118/72
[2019-02-02] MEDS: DOCUSATE SODIUM 250MG CAPSULE PO SCH (08:34)
[2019-02-02] MEDS: FERROUS SULFATE 325MG TABLET PO SCH ×3 (08:34→17:31)
[2019-02-02] MEDS: FUROSEMIDE 40MG TABLET PO SCH (08:34)
[2019-02-02] MEDS: TRAMADOL HCL/ACETAMINOPHEN 37.5/325MG TABLET PO PRN ×2 (08:34→17:31)
[2019-02-02] MEDS: MULTIVITAMINS,THER W-MINERALS TABLET PO SCH (08:34)
[2019-02-02] MEDS: POTASSIUM CHLORIDE 20MEQ TABLET SR PO SCH (08:35)
[2019-02-02] MEDS ORDERED: MIDAZOLAM HCL 5 MG/5 ML VIAL ONE (10:29)
[2019-02-02] MEDS ORDERED: FENTANYL CITRATE/PF 50MCG/ML 2ML VIAL ONE (10:29)
[2019-02-02] MEDS ORDERED: SIMETHICONE 40 MG/0.6 ML 30ML ONE (10:51)
[2019-02-02] MEDS ORDERED: MIDAZOLAM HCL 2 MG/2 ML VIAL IV PRN (11:05)
[2019-02-02 12:30] VITALS: BP 119/33
[2019-02-02] MEDS ORDERED: BACTERIOSTATIC SODIUM CHLORIDE 0.9% 30ML VIAL IJ ONE (13:22)
[2019-02-02] MEDS: DEXT 5%/0.45% NACL KCL 20MEQ/L 1,000 ML IV SCH (13:30)
[2019-02-02 16:00] VITALS: BP 104/25
[2019-02-02] MEDS: MONTELUKAST SODIUM 10MG TABLET PO SCH (17:32)
[2019-02-02 20:00] VITALS: BP 124/42
[2019-02-02 21:53] LABS: HEMATOCRIT 25.5 % (36.0-48.0); HEMOGLOBIN 8.3 g/dL (12.0-16.0)
[2019-02-03] VITALS (14 sets, daily range): BP systolic 96–138; BP diastolic 24–76
[2019-02-03] MEDS: METOPROLOL TARTRATE 25MG TABLET PO SCH ×2 (06:00→17:01)
[2019-02-03] MEDS: GABAPENTIN 100MG CAPSULE PO SCH ×2 (06:14→17:04)
[2019-02-03 06:46] LABS: BASOPHILS % 0.7 % (0.0-2.0); EOSINOPHILS % 3.5 % (0.0-5.0); HEMATOCRIT. 24.4 % (36.0-48.0); HEMOGLOBIN. 7.9 g/dL (12.0-16.0); LYMPHOCYTES % 16.1 % (20.0-50.0); MEAN CORPUSCULAR HEMOGLOBIN 29.8 pg (28.0-32.0); MEAN CORPUSCULAR VOLUME 91.8 fL (81.0-99.0); NEUTROPHILS % 70.7 % (40.0-76.0); PLATELET 214 x1000/uL (130-400); RED BLOOD CELL COUNT 2.66 mill/uL (4.2-5.4); RED CELL DISTRIBUTION WIDTH 16.5 % (11.6-14.6)
[2019-02-03] MEDS: INSULIN LISPRO 100 UNITS/ML SUBCUT SCH ×4 (07:26→20:59)
[2019-02-03] MEDS: OMEPRAZOLE 20MG CAPSULE EXTENDED RELEASE PO SCH ×2 (07:28→20:51)
[2019-02-03] MEDS: BLOOD SUGAR DIAGNOSTIC STRIP TEST SCH ×4 (07:28→20:58)
[2019-02-03] MEDS: FUROSEMIDE 40MG TABLET PO SCH (08:32)
[2019-02-03] MEDS: POTASSIUM CHLORIDE 20MEQ TABLET SR PO SCH (08:33)
[2019-02-03] MEDS: FERROUS SULFATE 325MG TABLET PO SCH ×3 (08:33→17:04)
[2019-02-03] MEDS: MULTIVITAMINS,THER W-MINERALS TABLET PO SCH (08:33)
[2019-02-03] MEDS: DOCUSATE SODIUM 250MG CAPSULE PO SCH (08:34)
[2019-02-03] MEDS: MULTAQ 400 MG PO SCH ×2 (08:35→20:53)
[2019-02-03] MEDS: ACETAMINOPHEN 325MG TABLET PO PRN ×2 (09:51→20:51)
[2019-02-03] MEDS: TRAMADOL 50MG TABLET PO PRN (16:33)
[2019-02-03] MEDS: MONTELUKAST SODIUM 10MG TABLET PO SCH (17:04)
[2019-02-03] MEDS: ATORVASTATIN CALCIUM 40MG TABLET PO SCH (20:51)
[2019-02-03 21:39] LABS: HEMATOCRIT 25.8 % (36.0-48.0); HEMOGLOBIN 8.7 g/dL (12.0-16.0)
[2019-02-04] VITALS: BP 97/35
[2019-02-04 04:00] VITALS: BP 115/38
[2019-02-04] MEDS: TRAMADOL 50MG TABLET PO PRN ×2 (04:11→08:49)
[2019-02-04 06:24] LABS: EOSINOPHILS % 3.5 % (0.0-5.0); HEMATOCRIT. 26.4 % (36.0-48.0); HEMOGLOBIN. 8.8 g/dL (12.0-16.0); LYMPHOCYTES % 17.4 % (20.0-50.0); MEAN CORPUSCULAR VOLUME 90.1 fL (81.0-99.0); MEAN PLATELET VOLUME 8.8 fl (7.4-10.4); MONOCYTES % 11.4 % (2.0-8.0); NEUTROPHILS % 66.7 % (40.0-76.0); PLATELET 208 x1000/uL (130-400); RED BLOOD CELL COUNT 2.93 mill/uL (4.2-5.4); RED CELL DISTRIBUTION WIDTH 16.2 % (11.6-14.6)
[2019-02-04 06:31] VITALS: BP 116/36
[2019-02-04] MEDS: INSULIN LISPRO 100 UNITS/ML SUBCUT SCH (06:39)
[2019-02-04] MEDS: METOPROLOL TARTRATE 25MG TABLET PO SCH (06:39)
[2019-02-04] MEDS: BLOOD SUGAR DIAGNOSTIC STRIP TEST SCH (06:39)
[2019-02-04] MEDS: OMEPRAZOLE 20MG CAPSULE EXTENDED RELEASE PO SCH (06:41)
[2019-02-04] MEDS: GABAPENTIN 100MG CAPSULE PO SCH (06:41)
[2019-02-04 08:05] VITALS: BP 109/36
[2019-02-04] MEDS: FERROUS SULFATE 325MG TABLET PO SCH (08:49)
[2019-02-04] MEDS: FUROSEMIDE 40MG TABLET PO SCH (08:50)
[2019-02-04] MEDS: DOCUSATE SODIUM 250MG CAPSULE PO SCH (08:50)
[2019-02-04] MEDS: MULTIVITAMINS,THER W-MINERALS TABLET PO SCH (08:50)
[2019-02-04] MEDS: MULTAQ 400 MG PO SCH (08:53)
[2019-02-04 11:04] VITALS: BP 109/36
== END 2019-02-04 12:20 | disposition home health service (06) | DRG 377 ==
LOC: ER 06:10 → 6WST 06:56 → EDBEDREQTM 06:59 → EDBEDREQ 06:59 → ENRESERV 14:25 → 6WST 01-30 07:50
PROVIDERS: ADMIT Internal Medicine Geriatric Medicine; ATTEND Internal Medicine Geriatric Medicine
PROC: 30233N1 Transfusion of Nonautologous Red Blood Cells into Peripheral Vein, Percutaneous Approach (ICD-10-PCS; 2019-01-30)
PROC: 0DB68ZX Excision of Stomach, Via Natural or Artificial Opening Endoscopic, Diagnostic (ICD-10-PCS; principal; 2019-01-31)
PROC: 0DJD8ZZ Inspection of Lower Intestinal Tract, Via Natural or Artificial Opening Endoscopic (ICD-10-PCS; 2019-01-31)
PROC: 0W3P8ZZ Control Bleeding in Gastrointestinal Tract, Via Natural or Artificial Opening Endoscopic (ICD-10-PCS; 2019-02-02)
DX: K55.21 Angiodysplasia of colon with hemorrhage (principal); I50.43 Acute on chronic combined systolic (congestive) and diastolic (congestive) heart failure; N17.9 Acute kidney failure, unspecified; I13.0 Hypertensive heart and chronic kidney disease with heart failure and stage 1 through stage 4 chronic kidney disease, or unspecified chronic kidney disease; E11.22 Type 2 diabetes mellitus with diabetic chronic kidney disease; I25.10 Atherosclerotic heart disease of native coronary artery without angina pectoris; I27.20 Pulmonary hypertension, unspecified; I48.0 Paroxysmal atrial fibrillation; N18.9 Chronic kidney disease, unspecified; E66.01 Morbid (severe) obesity due to excess calories; E78.5 Hyperlipidemia, unspecified; I48.2 Chronic atrial fibrillation; M48.02 Spinal stenosis, cervical region; I87.2 Venous insufficiency (chronic) (peripheral); E87.5 Hyperkalemia; I25.2 Old myocardial infarction; J44.9 Chronic obstructive pulmonary disease, unspecified; K44.9 Diaphragmatic hernia without obstruction or gangrene; K64.8 Other hemorrhoids; M13.0 Polyarthritis, unspecified; M50.30 Other cervical disc degeneration, unspecified cervical region; Z79.01 Long term (current) use of anticoagulants; Z87.01 Personal history of pneumonia (recurrent); Z95.1 Presence of aortocoronary bypass graft; Z95.5 Presence of coronary angioplasty implant and graft; Z79.899 Other long term (current) drug therapy; Z68.36 Body mass index [BMI] 36.0-36.9, adult; K29.60 Other gastritis without bleeding; D64.9 Anemia, unspecified
CPT/HCPCS: 36415; 71045; 72141; 73030; 80048; 82962; 83540; 83550; 83880; 84443; 84484; 84550; 85014; 85018; 85651; 86141; 86431; 86850; 86900; 86920; 88305; 88312; 88313; 93005; 93970; 96374; 97116; 97162; 99285; A6261; J1170; J1940; J2250; J2270; J2405; J2704; J2765; J3010; J3490; J7040; J7050; P9016

== ENCOUNTER 2019-03-20 15:41 | Inpatient (IN) | payer MEDICARE, MEDICAID ==
[~2019-03-20] VITALS: Ht 165.1 cm; Wt 103.1 kg
[2019-03-20] MEDS ORDERED: SODIUM CHLORIDE 0.9% 1,000 ML IV ONE (16:12)
[2019-03-20] MEDS ORDERED: ONDANSETRON HCL 4MG/2ML INJ IV STA (16:12)
[2019-03-20] MEDS ORDERED: MORPHINE SULFATE 4 MG/ML CPJ (NOT FOR IM USE) IV STA (16:12)
[2019-03-20] MEDS ORDERED: LEVOFLOXACIN 750MG PREMIX 150 ML IV ONE (16:15)
[2019-03-20 17:02] LABS: EOSINOPHILS % 2.1 % (0.0-5.0); HEMATOCRIT. 29.2 % (36.0-48.0); HEMOGLOBIN. 9.4 g/dL (12.0-16.0); MEAN CORPUSCULAR VOLUME 86.9 fL (81.0-99.0); MEAN PLATELET VOLUME 8.2 fl (7.4-10.4); MONOCYTES % 5.5 % (2.0-8.0); NEUTROPHILS % 78.4 % (40.0-76.0); PLATELET 649 x1000/uL (130-400); RED BLOOD CELL COUNT 3.36 mill/uL (4.2-5.4); RED CELL DISTRIBUTION WIDTH 17.2 % (11.6-14.6)
[2019-03-20 17:06] LABS: CHLORIDE 96 mEq/L (98-107)
[2019-03-20 17:09] LABS: INR 1.3; PARTIAL THROMBOPLASTIN TIME 45.5 sec (23.4-31.0); PROTHROMBIN TIME 12.7 sec (9.6-11.0)
[2019-03-20 18:16] LABS: CLARITY URINE CLEAR (CLEAR); COLOR URINE YELLOW (YELLOW); KETONES URINE TRACE (NEGATIVE); LEUKOCYTE ESTERASE URINE NEGATIVE (NEGATIVE); NITRITE URINE NEGATIVE (NEGATIVE); OCCULT BLOOD URINE NEGATIVE (NEGATIVE); PH URINE 5.5 (4.5-8.0); PROTEIN URINE NEGATIVE (NEGATIVE); SPECIFIC GRAVITY URINE 1.009 (1.005-1.030)
[2019-03-20] MEDS ORDERED: SODIUM CHLORIDE 0.45% 1,000 ML IV SCH (22:00)
[2019-03-20] MEDS ORDERED: CLONIDINE 0.1MG TABLET PO PRN (22:00)
[2019-03-20] MEDS ORDERED: PANTOPRAZOLE 80 MG in SODIUM CHLORIDE 0.9% 100 ML IV SCH (23:00)
[2019-03-20] MEDS ORDERED: DEXT 5%/0.45% NACL KCL 20MEQ/L 1,000 ML IV ONE (23:00)
[2019-03-20] MEDS ORDERED: NOREPINEPHRINE 4MG in DEXT 5% WATER 250ML IV PRN (23:45)
[2019-03-20] MEDS ORDERED: ACTIVATED CHARCOAL 50 G/240 ML TUBE PO NR (23:45)
[2019-03-20 23:52] LABS: CREATINE KINASE MB FRACTION 1.1 ng/mL (0.5-3.6)
[2019-03-21] VITALS (55 sets, daily range): BP systolic 80–151; BP diastolic 26–113
[2019-03-21] MEDS ORDERED: PANTOPRAZOLE 80 MG in SODIUM CHLORIDE 0.9% 100 ML IV SCH (00:15)
[2019-03-21 00:19] LABS: HEMOGLOBIN 8.5 g/dL (12.0-16.0)
[2019-03-21] MEDS ORDERED: SORBITOL 70% SOLN 30ML PO NR (01:30)
[2019-03-21] MEDS: HYDROMORPHONE HCL/PF 2MG/ML CPJ IV PRN ×2 (02:29→21:06)
[2019-03-21] MEDS: ONDANSETRON HCL 4MG/2ML INJ IV PRN ×3 (03:11→15:13)
[2019-03-21] MEDS: IPRATROPIUM/ALBUTEROL 0.5-3(2.5)MG/3ML NEB HHN SCH ×6 (04:00→23:45)
[2019-03-21] MEDS ORDERED: NA PHOS,M-B/NA PHOS,DI-BA ENEMA 118ML PR SCH (06:00)
[2019-03-21 08:54] LABS: BASOPHILS % 0.5 % (0.0-2.0); EOSINOPHILS % 0.3 % (0.0-5.0); HEMATOCRIT. 27.6 % (36.0-48.0); HEMOGLOBIN. 8.9 g/dL (12.0-16.0); LYMPHOCYTES % 8.5 % (20.0-50.0); MEAN CORPUSCULAR HEMOGLOBIN 28.4 pg (28.0-32.0); MEAN CORPUSCULAR VOLUME 88.1 fL (81.0-99.0); MEAN PLATELET VOLUME 7.4 fl (7.4-10.4); MONOCYTES % 3.6 % (2.0-8.0); NEUTROPHILS % 87.1 % (40.0-76.0); PLATELET 442 x1000/uL (130-400); RED BLOOD CELL COUNT 3.13 mill/uL (4.2-5.4); RED CELL DISTRIBUTION WIDTH 16.5 % (11.6-14.6)
[2019-03-21 08:58] LABS: CHLORIDE 109 mEq/L (98-107)
[2019-03-21] MEDS ORDERED: FAMOTIDINE 20MG/2ML VIAL IV SCH (09:00)
[2019-03-21] MEDS ORDERED: APIXABAN 5 MG TABLET PO SCH (09:00)
[2019-03-21 09:41] LABS: BG BASE EXCESS -0.7 mmol/L (-2.0-2.0); BG CARBOXYHEMOGLOBIN 0.2 % (0.5-1.5); BG DEOXYHEMOGLOBIN 1.6 % (0.0-5.0); BG FRACTION INSPIRED OXYGEN 28; BG HCO3 ACT 24.6 mmol/L (22.0-26.0); BG METHEMOGLOBIN 0.3 % (0.0-1.5); BG OXYGEN SATURATION 98.4 % (92.0-98.5); BG OXYHEMOGLOBIN 97.9 % (94.0-97.0); BG PCO2 43.5 mmHg (35.0-45.0); BG PO2 130.9 mmHg (75.0-100.0); BG SAMPLE SITE RIGHT BRACHIAL; BG TOTAL HEMOGLOBIN 8.9 g/dL (12.0-18.0); BG VENT MODE NASAL CANNULA
[2019-03-21] MEDS ORDERED: ONDANSETRON HCL 4MG/2ML INJ IM ONE (10:30)
[2019-03-21] MEDS ORDERED: ONDANSETRON HCL 4MG/2ML INJ IV PRN (10:30)
[2019-03-21] MEDS: ONDANSETRON HCL 4MG/2ML INJ IV NR ×2 (10:37→11:00)
[2019-03-21] MEDS ORDERED: ONDANSETRON INJ 8 MG in DEXTROSE 5% WATER 50 ML IV PRN (11:15)
[2019-03-21 11:40] LABS: TOTAL IRON BINDING CAPACITY 221 ug/dL (250-450)
[2019-03-21 12:57] LABS: HEMATOCRIT 28.3 % (36.0-48.0)
[2019-03-21] MEDS ORDERED: NOREPINEPHRINE 4 MG in DEXT 5% WATER 246 ML IV PRN (13:34)
[2019-03-21 13:44] LABS: HEPATITIS B SURFACE ANTIGEN NEGATIVE
[2019-03-21 14:14] LABS: HEPATITIS A AB IGM NEGATIVE (NEGATIVE)
[2019-03-21] MEDS: PANTOPRAZOLE SODIUM 40 MG/VIAL IV SCH ×2 (15:13→21:04)
[2019-03-21] MEDS ORDERED: DEXTROSE 50% WATER 50ML SYRINGE IV PRN (17:30)
[2019-03-21] MEDS: ACETAMINOPHEN 325MG TABLET PO PRN (18:50)
[2019-03-21 19:39] LABS: HEMOGLOBIN 7.8 g/dL (12.0-16.0)
[2019-03-21 19:40] LABS: HEMATOCRIT 24.8 % (36.0-48.0)
[2019-03-21] MEDS: INSULIN LISPRO 100 UNITS/ML SUBCUT SCH (21:00)
[2019-03-21] MEDS: BLOOD SUGAR DIAGNOSTIC STRIP TEST SCH (21:06)
[2019-03-22] VITALS (11 sets, daily range): BP systolic 101–140; BP diastolic 36–89
[2019-03-22] MEDS: IPRATROPIUM/ALBUTEROL 0.5-3(2.5)MG/3ML NEB HHN SCH ×6 (04:38→23:51)
[2019-03-22] MEDS: BLOOD SUGAR DIAGNOSTIC STRIP TEST SCH ×4 (07:05→21:13)
[2019-03-22 07:53] LABS: BASOPHILS % 0.8 % (0.0-2.0); EOSINOPHILS % 3.8 % (0.0-5.0); HEMATOCRIT. 26.5 % (36.0-48.0); HEMOGLOBIN. 8.3 g/dL (12.0-16.0); LYMPHOCYTES % 13.1 % (20.0-50.0); MEAN CORPUSCULAR HEMOGLOBIN 27.7 pg (28.0-32.0); MEAN PLATELET VOLUME 7.9 fl (7.4-10.4); MONOCYTES % 6.3 % (2.0-8.0); PLATELET 472 x1000/uL (130-400); RED BLOOD CELL COUNT 3.01 mill/uL (4.2-5.4); RED CELL DISTRIBUTION WIDTH 17.1 % (11.6-14.6)
[2019-03-22] MEDS: INSULIN LISPRO 100 UNITS/ML SUBCUT SCH ×4 (07:58→21:00)
[2019-03-22 08:06] LABS: CHLORIDE 109 mEq/L (98-107)
[2019-03-22] MEDS: PANTOPRAZOLE SODIUM 40 MG/VIAL IV SCH ×2 (08:29→20:56)
[2019-03-22] MEDS: SODIUM CHLORIDE 0.45% 1,000 ML IV SCH (08:37)
[2019-03-22 13:37] LABS: HEMATOCRIT 23.6 % (36.0-48.0); HEMOGLOBIN 7.6 g/dL (12.0-16.0)
[2019-03-22 19:00] LABS: HEMATOCRIT 24.7 % (36.0-48.0); HEMOGLOBIN 7.7 g/dL (12.0-16.0)
[2019-03-22] MEDS: ACETAMINOPHEN 325MG TABLET PO PRN (20:57)
[2019-03-23] VITALS (13 sets, daily range): BP systolic 89–156; BP diastolic 39–74
[2019-03-23 00:33] LABS: HEMATOCRIT 27.2 % (36.0-48.0); HEMOGLOBIN 8.6 g/dL (12.0-16.0)
[2019-03-23] MEDS: HYDROMORPHONE HCL/PF 2MG/ML CPJ IV PRN ×2 (00:52→21:39)
[2019-03-23] MEDS: IPRATROPIUM/ALBUTEROL 0.5-3(2.5)MG/3ML NEB HHN SCH ×5 (03:58→20:05)
[2019-03-23 07:53] LABS: EOSINOPHILS % 2.1 % (0.0-5.0); HEMATOCRIT. 25.5 % (36.0-48.0); HEMOGLOBIN. 8.2 g/dL (12.0-16.0); LYMPHOCYTES % 18.4 % (20.0-50.0); MEAN CORPUSCULAR HEMOGLOBIN 28.6 pg (28.0-32.0); MEAN CORPUSCULAR VOLUME 88.8 fL (81.0-99.0); MONOCYTES % 7.8 % (2.0-8.0); NEUTROPHILS % 70.7 % (40.0-76.0); PLATELET 377 x1000/uL (130-400); RED BLOOD CELL COUNT 2.87 mill/uL (4.2-5.4); RED CELL DISTRIBUTION WIDTH 17.4 % (11.6-14.6)
[2019-03-23] MEDS: INSULIN LISPRO 100 UNITS/ML SUBCUT SCH ×4 (08:00→20:32)
[2019-03-23] MEDS: BLOOD SUGAR DIAGNOSTIC STRIP TEST SCH ×4 (08:05→20:12)
[2019-03-23] MEDS: PANTOPRAZOLE SODIUM 40 MG/VIAL IV SCH ×2 (08:05→20:12)
[2019-03-23] MEDS: SODIUM CHLORIDE 0.45% 1,000 ML IV SCH ×2 (08:06→20:12)
[2019-03-23 08:49] LABS: CHLORIDE 111 mEq/L (98-107)
[2019-03-23] MEDS ORDERED: SIMETHICONE 40 MG/0.6 ML 30ML ONE (08:58)
[2019-03-23] MEDS ORDERED: BACTERIOSTATIC SODIUM CHLORIDE 0.9% 30ML VIAL IJ ONE (08:58)
[2019-03-23] MEDS ORDERED: MIDAZOLAM HCL 5 MG/5 ML VIAL IV PRN (10:29)
[2019-03-23] MEDS ORDERED: FENTANYL CITRATE/PF 50MCG/ML 2ML VIAL ONE (10:29)
[2019-03-23] MEDS ORDERED: MIDAZOLAM HCL 5 MG/5 ML VIAL ONE (10:29)
[2019-03-23 12:23] LABS: HEMATOCRIT 26.6 % (36.0-48.0); HEMOGLOBIN 8.5 g/dL (12.0-16.0)
[2019-03-23 20:17] LABS: HEMATOCRIT 26.4 % (36.0-48.0); HEMOGLOBIN 8.2 g/dL (12.0-16.0)
[2019-03-24] VITALS (18 sets, daily range): BP systolic 91–125; BP diastolic 33–96
[2019-03-24] MEDS: IPRATROPIUM/ALBUTEROL 0.5-3(2.5)MG/3ML NEB HHN SCH ×6 (00:14→20:58)
[2019-03-24 00:33] LABS: HEMATOCRIT 23.3 % (36.0-48.0); HEMOGLOBIN 7.4 g/dL (12.0-16.0)
[2019-03-24] MEDS: HYDROMORPHONE HCL/PF 2MG/ML CPJ IV PRN ×4 (04:14→16:43)
[2019-03-24 04:38] LABS: CHLORIDE 110 mEq/L (98-107)
[2019-03-24 05:15] LABS: BASOPHILS % 0.9 % (0.0-2.0); EOSINOPHILS % 4.3 % (0.0-5.0); HEMATOCRIT. 22.4 % (36.0-48.0); HEMOGLOBIN. 7.1 g/dL (12.0-16.0); MEAN CORPUSCULAR HEMOGLOBIN 28.4 pg (28.0-32.0); MEAN PLATELET VOLUME 8.4 fl (7.4-10.4); MONOCYTES % 8.3 % (2.0-8.0); NEUTROPHILS % 64.5 % (40.0-76.0); PLATELET 307 x1000/uL (130-400); RED BLOOD CELL COUNT 2.52 mill/uL (4.2-5.4); RED CELL DISTRIBUTION WIDTH 17.3 % (11.6-14.6)
[2019-03-24] MEDS: SODIUM CHLORIDE 0.45% 1,000 ML IV SCH ×2 (06:30→16:00)
[2019-03-24] MEDS: BLOOD SUGAR DIAGNOSTIC STRIP TEST SCH ×4 (07:54→21:00)
[2019-03-24] MEDS: INSULIN LISPRO 100 UNITS/ML SUBCUT SCH ×4 (07:54→21:00)
[2019-03-24] MEDS: PANTOPRAZOLE SODIUM 40 MG/VIAL IV SCH ×2 (08:02→21:02)
[2019-03-24] MEDS ORDERED: BACTERIOSTATIC SODIUM CHLORIDE 0.9% 30ML VIAL IJ ONE (09:58)
[2019-03-24] MEDS: CARVEDILOL 6.25 MG TABLET PO SCH ×2 (10:00→21:03)
[2019-03-24 15:46] LABS: HEMATOCRIT 29.3 % (36.0-48.0); HEMOGLOBIN 9.3 g/dL (12.0-16.0)
[2019-03-24] MEDS ORDERED: MIDAZOLAM HCL 5 MG/5 ML VIAL ONE (18:39)
[2019-03-24] MEDS ORDERED: FENTANYL CITRATE/PF 50MCG/ML 2ML VIAL ONE (18:40)
[2019-03-24] MEDS ORDERED: MIDAZOLAM HCL 5 MG/5 ML VIAL IV PRN (18:40)
[2019-03-24 20:02] LABS: T4 FREE 1.43 ng/dL (0.76-1.46)
[2019-03-24] MEDS: DEXT 5%/0.45% NACL KCL 20MEQ/L 1,000 ML IV SCH (21:02)
[2019-03-24] MEDS: DIGOXIN 125MCG TABLET PO SCH (21:02)
[2019-03-24] MEDS: ATORVASTATIN CALCIUM 20MG TABLET PO SCH (21:03)
[2019-03-25] VITALS (13 sets, daily range): BP systolic 88–153; BP diastolic 37–107
[2019-03-25 01:01] LABS: HEMATOCRIT 27.2 % (36.0-48.0); HEMOGLOBIN 8.7 g/dL (12.0-16.0)
[2019-03-25] MEDS: IPRATROPIUM/ALBUTEROL 0.5-3(2.5)MG/3ML NEB HHN SCH ×6 (02:01→20:00)
[2019-03-25] MEDS: HYDROMORPHONE HCL/PF 2MG/ML CPJ IV PRN ×3 (03:06→21:33)
[2019-03-25] MEDS: DEXT 5%/0.45% NACL KCL 20MEQ/L 1,000 ML IV SCH ×3 (06:30→23:22)
[2019-03-25 07:19] LABS: INR 1.1; PARTIAL THROMBOPLASTIN TIME 35.7 sec (23.4-31.0); PROTHROMBIN TIME 11.1 sec (9.6-11.0)
[2019-03-25 07:24] LABS: BASOPHILS % 0.9 % (0.0-2.0); EOSINOPHILS % 3.5 % (0.0-5.0); HEMATOCRIT. 28.9 % (36.0-48.0); HEMOGLOBIN. 9.3 g/dL (12.0-16.0); MEAN CORPUSCULAR HEMOGLOBIN 28.2 pg (28.0-32.0); MEAN CORPUSCULAR VOLUME 87.9 fL (81.0-99.0); MEAN PLATELET VOLUME 8.2 fl (7.4-10.4); MONOCYTES % 8.5 % (2.0-8.0); NEUTROPHILS % 75.1 % (40.0-76.0); PLATELET 311 x1000/uL (130-400); RED BLOOD CELL COUNT 3.29 mill/uL (4.2-5.4); RED CELL DISTRIBUTION WIDTH 18.5 % (11.6-14.6)
[2019-03-25] MEDS ORDERED: ASPI-1158 PO (07:45)
[2019-03-25] MEDS ORDERED: MONT10TA21 PO (07:45)
[2019-03-25] MEDS ORDERED: AMLO2.5T2 PO (07:45)
[2019-03-25] MEDS ORDERED: APIX5TAB PO (07:45)
[2019-03-25] MEDS ORDERED: MULT-1116 MT (07:45)
[2019-03-25] MEDS ORDERED: FURO-151 PO (07:45)
[2019-03-25] MEDS ORDERED: ASCO500C15 PO (07:45)
[2019-03-25] MEDS: INSULIN LISPRO 100 UNITS/ML SUBCUT SCH ×4 (08:00→20:31)
[2019-03-25] MEDS: BLOOD SUGAR DIAGNOSTIC STRIP TEST SCH ×4 (08:02→20:32)
[2019-03-25 08:15] LABS: CHLORIDE 112 mEq/L (98-107)
[2019-03-25] MEDS: CARVEDILOL 6.25 MG TABLET PO SCH ×2 (08:46→20:23)
[2019-03-25] MEDS ORDERED: LORAZEPAM 2MG/ML CPJ IV PRN (09:45)
[2019-03-25] MEDS ORDERED: PROPOFOL 200MG/20ML VIAL IV ONE (11:59)
[2019-03-25] MEDS ORDERED: MIDAZOLAM HCL 2 MG/2 ML VIAL ONE (11:59)
[2019-03-25] MEDS ORDERED: PHENYLEPHRINE HCL 10 MG/ML 1ML (IV VIAL) IV ONE (12:00)
[2019-03-25] MEDS ORDERED: LIDOCAINE HCL/PF 1% 10 MG/ML 5ML VIAL ONE (12:00)
[2019-03-25] MEDS ORDERED: SIMETHICONE 40 MG/0.6 ML 30ML ONE (12:00)
[2019-03-25] MEDS ORDERED: EPHEDRINE SULFATE 50MG/ML VIAL ONE (12:00)
[2019-03-25] MEDS ORDERED: ETOMIDATE 2MG/ML 10ML VIAL IV ONE (12:05)
[2019-03-25 12:34] LABS: HEMATOCRIT 30.5 % (36.0-48.0); HEMOGLOBIN 9.7 g/dL (12.0-16.0)
[2019-03-25] MEDS: PANTOPRAZOLE SODIUM 40 MG/VIAL IV SCH ×2 (16:31→20:19)
[2019-03-25] MEDS: DIGOXIN 125MCG TABLET PO SCH (17:34)
[2019-03-25] MEDS: ONDANSETRON HCL 4MG/2ML INJ IV PRN (18:41)
[2019-03-25 19:14] LABS: HEMATOCRIT 30.4 % (36.0-48.0); HEMOGLOBIN 9.7 g/dL (12.0-16.0)
[2019-03-25] MEDS: ATORVASTATIN CALCIUM 20MG TABLET PO SCH (20:18)
[2019-03-26] VITALS (13 sets, daily range): BP systolic 90–173; BP diastolic 36–111
[2019-03-26 02:26] LABS: HEMATOCRIT 27.8 % (36.0-48.0); HEMOGLOBIN 8.8 g/dL (12.0-16.0)
[2019-03-26] MEDS: IPRATROPIUM/ALBUTEROL 0.5-3(2.5)MG/3ML NEB HHN SCH ×6 (04:10→19:54)
[2019-03-26] MEDS: ACETAMINOPHEN 325MG TABLET PO PRN ×2 (06:41→20:07)
[2019-03-26 07:58] LABS: EOSINOPHILS % 3.5 % (0.0-5.0); HEMATOCRIT. 30.1 % (36.0-48.0); HEMOGLOBIN. 9.6 g/dL (12.0-16.0); LYMPHOCYTES % 13.1 % (20.0-50.0); MEAN CORPUSCULAR HEMOGLOBIN 27.9 pg (28.0-32.0); MEAN CORPUSCULAR VOLUME 87.1 fL (81.0-99.0); MEAN PLATELET VOLUME 8.4 fl (7.4-10.4); NEUTROPHILS % 72.4 % (40.0-76.0); PLATELET 299 x1000/uL (130-400); RED BLOOD CELL COUNT 3.45 mill/uL (4.2-5.4)
[2019-03-26] MEDS: INSULIN LISPRO 100 UNITS/ML SUBCUT SCH ×3 (08:00→20:36)
[2019-03-26 08:01] LABS: CHLORIDE 112 mEq/L (98-107)
[2019-03-26] MEDS: BLOOD SUGAR DIAGNOSTIC STRIP TEST SCH ×4 (08:29→20:34)
[2019-03-26] MEDS: CARVEDILOL 6.25 MG TABLET PO SCH ×2 (09:05→20:34)
[2019-03-26] MEDS: PANTOPRAZOLE SODIUM 40 MG/VIAL IV SCH ×2 (09:10→20:34)
[2019-03-26] MEDS ORDERED: MAGNESIUM OXIDE 400MG TABLET PO SCH (10:30)
[2019-03-26] MEDS: ATORVASTATIN CALCIUM 20MG TABLET PO SCH (20:33)
[2019-03-26] MEDS: ONDANSETRON HCL 4MG/2ML INJ IV PRN (22:29)
== END 2019-03-26 23:25 | DRG 378 ==
LOC: ER 15:41 → EDBEDREQ 20:58 → EDBEDREQTM 20:58 → CANRESERV 22:12 → ENRESERV 22:12 → EDBEDREQTM 22:48 → EDBEDREQSVC 22:48 → ENRESERV 23:52 → MICUNO 03-21 01:21 → 5EST 03-21 17:52
PROVIDERS: ADMIT Internal Medicine Geriatric Medicine; ATTEND Internal Medicine Geriatric Medicine
PROC: 30233K1 Transfusion of Nonautologous Frozen Plasma into Peripheral Vein, Percutaneous Approach (ICD-10-PCS; 2019-03-21)
PROC: 30233N1 Transfusion of Nonautologous Red Blood Cells into Peripheral Vein, Percutaneous Approach (ICD-10-PCS; 2019-03-21)
PROC: 05H533Z Insertion of Infusion Device into Right Subclavian Vein, Percutaneous Approach (ICD-10-PCS; 2019-03-21)
PROC: B546ZZA Ultrasonography of Right Subclavian Vein, Guidance (ICD-10-PCS; 2019-03-21)
PROC: 0DJ08ZZ Inspection of Upper Intestinal Tract, Via Natural or Artificial Opening Endoscopic (ICD-10-PCS; principal; 2019-03-23)
PROC: 0DJ08ZZ Inspection of Upper Intestinal Tract, Via Natural or Artificial Opening Endoscopic (ICD-10-PCS; 2019-03-25)
DX: K29.61 Other gastritis with bleeding (principal); I50.32 Chronic diastolic (congestive) heart failure; I13.0 Hypertensive heart and chronic kidney disease with heart failure and stage 1 through stage 4 chronic kidney disease, or unspecified chronic kidney disease; E87.0 Hyperosmolality and hypernatremia; N17.9 Acute kidney failure, unspecified; D62 Acute posthemorrhagic anemia; I95.9 Hypotension, unspecified; E11.22 Type 2 diabetes mellitus with diabetic chronic kidney disease; K44.9 Diaphragmatic hernia without obstruction or gangrene; N18.9 Chronic kidney disease, unspecified; D63.8 Anemia in other chronic diseases classified elsewhere; I25.10 Atherosclerotic heart disease of native coronary artery without angina pectoris; E11.51 Type 2 diabetes mellitus with diabetic peripheral angiopathy without gangrene; E66.01 Morbid (severe) obesity due to excess calories; E78.5 Hyperlipidemia, unspecified; E86.0 Dehydration; F32.9 Major depressive disorder, single episode, unspecified; I27.20 Pulmonary hypertension, unspecified; I48.0 Paroxysmal atrial fibrillation; J44.9 Chronic obstructive pulmonary disease, unspecified; I70.0 Atherosclerosis of aorta; K20.9 Esophagitis, unspecified; K56.41 Fecal impaction; K80.20 Calculus of gallbladder without cholecystitis without obstruction; N20.0 Calculus of kidney; Z53.8 Procedure and treatment not carried out for other reasons; K83.8 Other specified diseases of biliary tract; I48.2 Chronic atrial fibrillation; R16.0 Hepatomegaly, not elsewhere classified; R62.7 Adult failure to thrive; Z79.01 Long term (current) use of anticoagulants; Z79.899 Other long term (current) drug therapy; Z87.440 Personal history of urinary (tract) infections; I25.2 Old myocardial infarction; Z95.1 Presence of aortocoronary bypass graft; Z95.5 Presence of coronary angioplasty implant and graft; Z68.37 Body mass index [BMI] 37.0-37.9, adult
CPT/HCPCS: 36415; 36600; 71045; 74176; 76705; 76937; 80048; 82105; 82248; 82270; 82375; 82553; 82805; 82962; 83540; 83550; 83605; 83735; 83880; 84439; 84443; 84484; 85014; 85018; 86705; 86709; 86803; 86850; 86900; 86920; 86927; 87340; 93005; 93970; 94640; 99152; C1725; C9113; J1170; J1956; J2250; J2270; J2370; J2405; J2704; J3010; J3490; J7030; J7050; J7620; P9016; P9017; G0500